=== PATIENT | female | born 1975 | race Caucasian/White ===

== ENCOUNTER → 2018-05-01 | Outpatient (REF) | payer OTHER ==
[~2018-05-01] MED LIST: CLEO300C2 PO
== END ==
LOC: M SFHCLERA 13:24
PROVIDERS: ATTEND Nurse Practitioner Family
DX: J02.9 Acute pharyngitis, unspecified (principal)

== ENCOUNTER → 2019-04-05 | Outpatient (CLI) | payer OTHER ==
[~2019-04-05] MED LIST changes: +PROHANCE 279.3MG/ML 15ML VIAL (A9576) As Ordered ONE; +PROHANCE 279.3MG/ML 5ML VIAL (A9576) As Ordered ONE
--- NOTE | 2019-04-05 17:16 | REP ---
MRI pelvis without and with IV contrast: History: Enlarged uterus, fibroids. No comparison pelvic imaging. Consideration for embolization therapy. Technique: Axial, coronal and sagittal imaging planes are utilized. T1 and T2-weighted sequences include spin-echo, fast spin echo, inversion recovery, diffusion, and postcontrast fat sat imaging. The gadolinium enhancement dose is 17 mL of intravenous ProHance. MRI findings: There is a small quantity of fluid in the cul-de-sac. There is a 3.5 cm follicle cyst in the right ovary. Smaller follicles are seen in the left ovary. No ovarian mass or significant cyst is observed. There is no evidence of bladder mass or pelvic adenopathy. Cortical and medullary bone signal intensity are normal. Overall uterine dimensions are 12.9 x 8.3 x 9.0 cm. There is diffuse rather traumatic thickening of the junctional zone with scattered punctate foci of T2 hyperintensity within the myometrium. There is no measurable fibroid and the changes are felt to be consistent with diffuse and rather florid adenomyosis rather than fibroid change. Postcontrast images show diffuse myometrial and junctional zone enhancement; again no identifiable fibroid. Impression: Findings consistent with diffuse adenomyosis of the uterus rather than fibroid change. The uterus is quite enlarged, 13 cm in length. There is a small quantity of cul-de-sac fluid. No other abnormality. Electronically Signed by Greg oRd MD 04/05/2019 05:52 P
== END ==
LOC: M RAD 14:21
PROVIDERS: ATTEND Obstetrics & Gynecology
DX: N85.2 Hypertrophy of uterus (principal)
CPT/HCPCS: 72197; A9576

== ENCOUNTER 2020-03-20 10:59 | Outpatient (CLI) | payer OTHER ==
[~2020-03-20 10:59] MED LIST changes: -PROHANCE 279.3MG/ML 15ML VIAL (A9576) As Ordered ONE; -PROHANCE 279.3MG/ML 5ML VIAL (A9576) As Ordered ONE
[2020-03-20 11:03] VITALS: BP 162/88
[2020-03-20 11:48] VITALS: BP 155/82
[2020-03-20 13:45] VITALS: BP 129/77
== END 2020-03-20 13:45 | disposition home or self-care (01) ==
LOC: M INFU 10:59
DX: N93.9 Abnormal uterine and vaginal bleeding, unspecified (principal); D50.0 Iron deficiency anemia secondary to blood loss (chronic); Z88.1 Allergy status to other antibiotic agents
CPT/HCPCS: 96365; 96366; J1756

== ENCOUNTER 2020-03-27 11:02 | Outpatient (CLI) | payer OTHER ==
[2020-03-27 11:47] VITALS: BP 136/67
[2020-03-27 13:25] VITALS: BP 110/69
== END 2020-03-27 13:25 | disposition home or self-care (01) ==
LOC: M INFU 11:02
DX: D50.9 Iron deficiency anemia, unspecified (principal); N93.9 Abnormal uterine and vaginal bleeding, unspecified
CPT/HCPCS: 96365; 96366; J1756

== ENCOUNTER 2020-04-03 10:25 | Outpatient (CLI) | payer OTHER ==
[~2020-04-03] VITALS: Ht 175.3 cm; Wt 94.5 kg
[2020-04-03 10:32] VITALS: BP 135/69
[2020-04-03 13:30] VITALS: BP 116/72
== END 2020-04-03 13:30 | disposition home or self-care (01) ==
LOC: M INFU 10:25
DX: D50.9 Iron deficiency anemia, unspecified (principal); N93.9 Abnormal uterine and vaginal bleeding, unspecified
CPT/HCPCS: 96365; 96366; J1756

== ENCOUNTER 2020-04-10 11:24 | Outpatient (CLI) | payer OTHER ==
[~2020-04-10] VITALS: Ht 172.7 cm; Wt 94.5 kg
[~2020-04-10 11:24] MED LIST changes: +MULT-40 PO; +ZYRTTAB8 PO
[2020-04-10 11:30] VITALS: BP 118/74
[2020-04-10 12:20] VITALS: BP_SYST 116; BP_SYST 121; BP_DIAS 62; BP_DIAS 74
[2020-04-10 13:20] VITALS: BP 121/62
[2020-04-10 14:45] VITALS: BP 127/64
== END 2020-04-10 14:45 | disposition home or self-care (01) ==
LOC: M INFU 11:24
DX: D50.0 Iron deficiency anemia secondary to blood loss (chronic) (principal); N93.9 Abnormal uterine and vaginal bleeding, unspecified
CPT/HCPCS: 96365; 96366; J1756

== ENCOUNTER 2020-04-17 06:12 | Day surgery (SDC) | payer OTHER ==
[~2020-04-17] VITALS: Ht 175.3 cm; Wt 90.7 kg
[2020-04-17 06:51] LABS: HEMOGLOBIN 10.6 g/dl (12.0-15.5); MEAN CORPUSCULAR HEMOGLOBIN 22.6 pg (27.0-33.0); MEAN CORPUSCULAR HGB CONC 27.2 g/dl (32.0-36.5); MEAN CORPUSCULAR VOLUME 83.3 fl (80.0-96.0); PLATELET COUNT, AUTOMATED 321 10^3/uL (150-450); RED BLOOD COUNT 4.68 10^6/uL (4.00-5.40); WHITE BLOOD COUNT 6.9 10^3/uL (4.0-10.0)
[2020-04-17] MEDS ORDERED: LR 1,000 ML IV ONE (07:00)
[2020-04-17] MEDS ORDERED: BUPIVACAINE HCL 0.5% 30 ML VIAL As Ordered ONE (07:12)
[2020-04-17 07:14] LABS: APPEARANCE, URINE HAZY (CLEAR); BACTERIA, URINE AUTO NEGATIVE (NEGATIVE); BILIRUBIN, URINE AUTO NEGATIVE (NEGATIVE); BLOOD, URINE BLOOD 3+ (NEGATIVE); COLOR, URINE YELLOW (YELLOW); GLUCOSE, URINE (UA) AUTO NEGATIVE (NEGATIVE); KETONE, URINE AUTO NEGATIVE (NEGATIVE); LEUKOCYTE ESTERASE, URINE AUTO NEGATIVE (NEGATIVE); MUCUS, URINE SMALL (NEGATIVE); NITRITE, URINE AUTO NEGATIVE (NEGATIVE); PROTEIN, URINE AUTO 1+ mg/dL (NEGATIVE); RBC, URINE AUTO TNTC /HPF (0-3); SPECIFIC GRAVITY URINE AUTO 1.014 (1.002-1.035); SQUAMOUS EPITHELIAL CELL UR AU 2 /HPF (0-6); UROBILINOGEN, URINE AUTO 0.2 mg/dL (0.0-2.0); WBC, URINE AUTO 3 /HPF (0-3)
[2020-04-17 07:16] LABS: URINE PREG TEST NEGATIVE (NEGATIVE)
[2020-04-17] MEDS ORDERED: fentaNYL 100 MCG/2 ML INJECTION (J3010) As Ordered ONE ×2 (07:24→08:35)
[2020-04-17] MEDS ORDERED: ONDANSETRON 4MG/2ML VIAL As Ordered ONE (07:24)
[2020-04-17] MEDS ORDERED: ACETAMINOPHEN 1000MG 100ML IV BTL (OFIRMEV) (J0131 PER 10MG) As Ordered ONE (07:24)
[2020-04-17] MEDS ORDERED: KETOROLAC 60MG 2ML VIAL As Ordered ONE (07:24)
[2020-04-17] MEDS ORDERED: LIDOCAINE 2% 100MG/5ML SDV (FOR ANES.) As Ordered ONE (07:24)
[2020-04-17] MEDS ORDERED: dexameTHASONE 4 MG/ML 1ML VIAL (J1100 PER 1MG) As Ordered ONE (07:24)
[2020-04-17] MEDS ORDERED: ROCURONIUM BROMIDE 50 MG/5 ML VIAL As Ordered ONE (07:24)
[2020-04-17] MEDS ORDERED: propofoL 200 MG/20 ML VIAL As Ordered ONE (07:24)
[2020-04-17] MEDS ORDERED: SUGAMMADEX SODIUM 500 MG/5 ML VIAL (BRIDION) As Ordered ONE (07:24)
[2020-04-17] MEDS ORDERED: MIDAZOLAM INJ 2MG/2ML VIAL (J2250 PER 1MG) As Ordered ONE (07:25)
[2020-04-17] MEDS ORDERED: METOCLOPRAMIDE INJ 10MG/2ML VIAL (J2765 PER 1) IV PRN (10:00)
[2020-04-17] MEDS ORDERED: ONDANSETRON 4MG/2ML VIAL IV PRN (10:00)
[2020-04-17] MEDS ORDERED: PERCOCET 5MG/325MG TAB PO PRN (10:00)
[2020-04-17] MEDS ORDERED: fentaNYL 100 MCG/2 ML INJECTION (J3010) IV PRN (10:00)
[2020-04-17] MEDS ORDERED: LR 1,000 ML IV SCH (10:00)
[2020-04-17 10:30] VITALS: BP 120/64
--- NOTE | 2020-04-17 19:06 | ROOPDOC ---
[facility] Report Of Operation Report of Operation DATE OF PROCEDURE: 04/17/20 PREPROCEDURE DIAGNOSES: 1.) Abnormal uterine bleeding 2.) Satisfied parity POSTPROCEDURE DIAGNOSES: 1.) Abnormal uterine bleeding 2.) Satisfied parity PROCEDURE: 1.) Laparoscopic bilateral salpingectomy 2.) Dilation and curettage 3.) Novasure endometrial ablation SURGEON: Nurys Aranda DO COIL CLEANER: Amador Brownlee DO ANESTHESIA: General ESTIMATED BLOOD LOSS: Approximately 5 mL. FLUIDS: 400ml LR OUTPUT: 100ml urine COMPLICATIONS: None. FINDINGS: Patient noted to be on menses with small amount of blood in the p osterior culdesac. Mild adhesive disease of bladder to anterior aspect of uterus. Normal-appearing bilateral ovaries. Bilateral fallopian tubes noted to have fatty tissue incorporated bilaterally but otherwise normal-appearing. NOVASURE ABLATION: Uterus sounded to 9cm with uterine cavity length 6cm. Cavity width 2.7cm. Power 89watts. Time of ablation 93 seconds. DESCRIPTION OF PROCEDURE: The risks, benefits, indications and alternatives of the procedure were reviewed with the patient and informed consent was obtained. The pt was taken to the operating room where general anesthesia was obtained without difficulty. The pt was then placed in the low lithotomy position using Alhaji Stirrups. An exam under anesthesia was then performed and significant for a midline, mobile, 8- week sized anteverted uterus with no adnexal masses/fullness appreciated. Pt was then prepped and draped in the sterile fashion. A time out was performed. The bladder was drained with in-and-out catheter. A single tooth tenaculum was used to grasp the anterior lip of the cervix. The uterus was then sounded to 9 cm. An [place] uterine manipulator was then placed inside the cervix. Gloves were exchanged and attention was then turned to the patients abdomen were a 5mm skin incision was made in the inferior aspect of the umbilicus after injection of 5 cc of 0.5% Marcaine. A 5mm trocar and sleeve were then carefully introduced into the peritoneal cavity under direct visualization at a 90-degree angle while tenting up the abdominal wall. Intra-peritoneal placement was confirmed under direct visualization with entry pressure <5 mm Hg. A pneumoperitoneum was obtained with several liters of CO2 gas, maximum pressure of 15 mm Hg. Upon entry into the peritoneal cavity, structures immediately below the incision were inspected and found to be free of injury. A survey of the patients abdomen and pelvis was notable for a normal appearing liver, gallbladder, and stomach. The uterus, fallopian tubes, and ovaries were normal in appearance. The anterior and posterior cul-de-sacs were also inspected and normal. Two additional 5mm trocars, one on the left lateral aspect of the abdominal wall and one on the right lateral aspect of the abdominal wall were placed under direct laparoscopic visualization after injection of 3ml of 0.5% Marcaine plain. Using the ligasure electrocautery the left fallopian tube was dissected from the mesosalpinx from the fimbriated end to the isthmic portion, taking care to avoid any vasculature within the mesosalpinx. The fallopian tube was then amputated at its connection to the uterine cornua and removed from the patient's abdomen through the RLQ port site. Attention was then turned to the patient's right fallopian tube, which was lifted by a blunt grasper and removed in a similiar fashion. The right fallopian tube was amputated and also removed from the RLQ port site with a blunt grasper. All operative sites were noted to be hemostatic. The gas was then turned off and all CO2 was removed from the patients abdomen. All remaining ports were then removed and incisions were noted to be hemostatic. The umbilicus incision was then closed with 4-0 monocryl. All incisions were dressed with dermabond. A uterine sound was gently placed into the uterus, which sounded to 9 cm with cervical length of 6 cm. The cervix was then gently, serially dilated to a size 14 Polish juan/milla dilator. The Novasure device was then opened and the cavity length set to 6cm. The Novasure device was then placed into the uterine cavity and deployed. The usual maneuvers were performed per the manufacturers guidelines and a cavity width of 2.7 cm was obtained. The cavity integrity was assessed. The Novasure device was then activated and the cavity was ablated for 93 seconds at a power of 89 galvan. The Novasure device was then carefully removed from the endometrial cavity. The single tooth tenaculum was removed from the anterior lip of the cervix. The tenaculum sites were noted to be hemostatic. All instruments were then removed from the vagina. A vaginal sweep was performed and confirmed no retained foreign objects remained in the vagina. At the completion of the case the sponge and needle counts were correct x 2. The patient tolerated the procedure well and was taken to the PACU in stable condition. NURYS ARANDA DO Apr 17, 2020 09:28
== END 2020-04-17 10:50 | disposition home or self-care (01) ==
LOC: M SDC 06:12
DX: Z30.2 Encounter for sterilization (principal); N93.9 Abnormal uterine and vaginal bleeding, unspecified; D50.0 Iron deficiency anemia secondary to blood loss (chronic); R06.83 Snoring; Z87.891 Personal history of nicotine dependence; Z88.1 Allergy status to other antibiotic agents
CPT/HCPCS: 36415; 58563; 58661; 81001; 81025; 84703; 85027; 86850; 86900; 86901; 88302; 88305; J0131; J1100; J1885; J2250; J2405; J3010

== ENCOUNTER 2020-05-02 16:20 | Emergency (ER) | payer OTHER ==
[~2020-05-02] VITALS: Ht 175.3 cm; Wt 91.0 kg
--- OUTSIDE RECORDS SUMMARY | 2020-05-02 16:26 | CCD ---
Author Author [facility] Organization [facility] Address Unknown Phone Unavailable Care Team Providers Care Process Checker Name Role Phone LAKSHMI PINA ARLETTE Unavailable Unavailable Re-disclosure Warning The records that you are about to access may contain information from federally-assisted alcohol or drug abuse programs. If such information is present, then the following federally mandated warning applies: This information has been disclosed to you from records protected by federal confidentiality rules (42 CFR part 2). The federal rules prohibit you from making any further disclosure of this information unless further disclosure is expressly permitted by the written consent of the person to whom it pertains or as otherwise permitted by 42 CFR part 2. A general authorization for the release of medical or other information is NOT sufficient for this purpose. The Federal rules restrict any use of the information to criminally investigate or prosecute any alcohol or drug abuse patient.The records that you are about to access may contain highly sensitive health information, the redisclosure of which is protected by Article 27-F of the [facility] [place] Public Health law. If you continue you may have access to information: Regarding HIV / AIDS; Provided by facilities licensed or operated by the [facility] [place] Office of Mental Health; or Provided by the [facility] [place] Office for People With Developmental Disabilities. If such information is present, then the following [facility] [place] mandated warning applies: This information has been disclosed to you from confidential records which are protected by state law. State law prohibits you from making any further disclosure of this information without the specific written consent of the person to whom it pertains, or as otherwise permitted by law. Any unauthorized further disclosure in violation of state law may result in a fine or senior care sentence or both. A general authorization for the release of medical or other information is NOT sufficient authorization for further disc losure. Encounters Encounter Providers Location Date Indications Data Source(s ) Outpatient Referrer: COCOKandaceAmy ARLETTE PINA 04/26/2019 01:59 :00 PM EST [facility] Outpatient Referrer: LAKSHMI PINA 03/15/2019 08:23 :00 AM EST [facility] Outpatient Referrer: LAKSHMI PINA 03/10/2019 11:53 :00 AM EST [facility] Insurance Providers Payer name Policy type / Coverage type Policy ID Covered democrat ID Covered democrat's relationship to diop Policy Diop Plan Information [employer]AST HUMANA [id number] [id number] HUMANA EAST REG O [id number] S [id number] ANSI-Not a Secondary Insurance [id number] PGBA [employer] [facility] O [id number] P [id number] PGBA [facility] [id number] [facility] [id number] N REGIONAL CLAIMS CATE -O/P [id number] 01 [id number] Results ID Date Data Source [id number] 03/15/2019 12:00:00 AM EST [facility] Arlette Pina Weed Cutter-C Patient Name: ADELSO GARCIA [id number] [facility] Date of : 1975[place] [address] Date of Exam: 03/15/2019PH#: Fax: [phone] EXAM: MAMMO SCREENING WITH CADCLINICAL INFORMATION: Screening.Based on the personal and family history information your patient suppliedat the time of imaging, her lifetime risk of breast cancer estimated by theTyrer-Cuzick model is 19.5%. Given that this patient has less than 20% TCrisk score, no further medical management is currently recommended at thistime.Digital screening (2D only) mammography was performed bilaterally in the CCand MLO projections. Today's exam was compared to the prior exam(s).By history, the patient has no complaints of a palpable breast abnormalityor other significant breast complaints.The patient states that a clinical breast exam was not performed.The breasts are unchanged in size and shape. Once again, denseheterogeneous fibroglandular elements are seen bilaterally in a stableappearing pattern but to such a degree that the sensitivity of themammogram in detecting cancer is decreased. There are no mita-soft tissuedensities or spiculated masses. There is no internal architecturaldistortion. There are no suspicious mita-calcific clusters. Skinthickening or nipple retraction is not present. Stable benign appearingcalcifications are seen bilaterally.The Volpara volumetric breast density category is C, the breasts areheterogeneously dense which may obscure small masses.IMPRESSION:BI-RADS Category 2 - Benign Finding(s). Stable mammogram. There is noevidence of malignant alteration of the breasts. Followup examinationrecommended in one year.This mammogram was read with the assistance of [employer], an FDAapproved computer aided detection system for mammography.Negative x-ray reports should not delay surgical consultation if a dominantor clinically suspicious mass is present.Not all breast cancers can be identified by mammography. Therefore, werecommend that you continue to perform regular breast self-examination andphysical examination and then promptly contact your physician of anyconcerns or changes.Adenosis and dense breasts may obscure an underlying neoplasm.MARINA Ibrahim/Yuliet you for referring ADELSO GARCIA to our office. Electronically Signed - EWA RODRIGUES DO 03/15/19 12:34 Name Value Range Interpretation Code Description Data Cyn rce(s) Supporting Document(s) Procedure
--- OUTSIDE RECORDS SUMMARY | 2020-05-02 17:11 | CCD ---
Author Author [facility] Organization [facility] Address Unknown Phone Unavailable Care Team Providers Care Physical Education Teacher Name Role Phone LAKSHMI PINA ARLETTE Unavailable [...] is protected by Article 27-F of the [facility] Public Health law. If you continue you may have access to information: Regarding HIV / AIDS; Provided by facilities licensed or operated by the [facility] Office of Mental Health; or Provided by the [facility] Office for People With Developmental Disabilities. If such information is present, then the following [facility] mandated warning applies: This information has been [...] law may result in a fine or [place] health care [place] sentence or both. A general authorization for [...] type / Coverage type Policy ID Covered constitution party ID Covered constitution party's relationship to diop Policy Diop Plan Information EAST HUMANA [id number] HU2 [id number] HUMANA EAST REG O [id number] S [id number] ANSI-Not a Secondary Insurance [id number] PGBA [place] O [id number] P [id number] PGBA [facility] [id number] [facility] [id number] N REGIONAL CLAIMS CATE -O/P [id number] 01 [id number] Results ID Date Data Source [id number] 03/15/2019 12:00:00 AM EST [facility] Arlette Pina Forest Economics Professor-C Patient Name: ADELSO GARCIA [id number] [facility] Date of : 1975[place] [address] Date of Exam: 03/15/2019PH#: Fax: [phone] EXAM: [...] was read with the assistance of [employer], an FDAapproved computer aided detection system for [...]
[2020-05-02] MEDS ORDERED: NS 1,000 ML IV ONE (18:30)
[2020-05-02] MEDS ORDERED: KETOROLAC 30 MG/ML 1ML VIAL IV ONE (18:30)
[2020-05-02 19:35] LABS: BLOOD UREA NITROGEN 12 MG/DL (7-18); CALCIUM LEVEL 8.8 MG/DL (8.5-10.1); CARBON DIOXIDE LEVEL 26 MEQ/L (21-32); CHLORIDE LEVEL 108 MEQ/L (98-107); CREATININE FOR GFR 0.74 MG/DL (0.55-1.30); GLOMERULAR FILTRATION RATE > 60.0 (>58); GLUCOSE, FASTING 84 MG/DL (70-100); POTASSIUM SERUM 4.8 MEQ/L (3.5-5.1); SODIUM LEVEL 139 MEQ/L (136-145)
[2020-05-02 20:02] LABS: INR 1.01; PROTHROMBIN TIME 13.5 SECONDS (12.5-14.3)
--- NOTE | 2020-05-02 20:04 | REPVR ---
PROCEDURE INFORMATION: Exam: US Nonobstetric Pelvis; Complete Exam date and time: 05/02/2020 7:25 PM Age: 44 years old Clinical indication: Pelvic pain and other: Vaginal bleeding; Prior surgery; Surgery date: <1 month; Surgery type: S/P ablation on 04/17; Additional info: 04/17 uterine ablation, heavy bleeding sudden today TECHNIQUE: Imaging protocol: Transabdominal pelvic nonobstetric ultrasound. Complete exam. Real time ultrasound with image documentation. COMPARISON: MRI PELVIS W/O FOLL WITH CON 04/05/2019 2:54 PM FINDINGS: Uterus/cervix: The uterus measures 9.7 cm in length by 4 cm in AP dimension by 7.5 cm in transverse dimension. The uterus is bulbous probably secondary to fibroid changes. The endometrium is thickened at 2.7 cm and irregular in echo pattern. It is difficult to completely evaluate the uterus secondary to the patient's discomfort. The uterus is anteverted. Intraperitoneal space: There is a small amount of free fluid in the pelvis. Other findings: The ovaries could not be evaluated during this examination. IMPRESSION: 1. Fibroid changes of the uterus. 2. Thickened endometrium at 2.7 cm and there may be blood and blood products within. Recommend MRI scan for better evaluation of the endometrium as discussed above. Electronically signed by: Fidel Beyer On 05/02/2020 20:04:23 PM
[2020-05-02 20:26] LABS: BASO % 0.5 % (0.0-1.0); EOS % 0.2 % (0.0-3.0); HEMATOCRIT 41.1 % (36.0-47.0); HEMOGLOBIN 11.6 g/dl (12.0-15.5); LYMPH # 0.3 10^3/uL (1.5-5.0); LYMPH % 5.1 % (24.0-44.0); MEAN CORPUSCULAR HEMOGLOBIN 24.9 pg (27.0-33.0); MEAN CORPUSCULAR HGB CONC 28.2 g/dl (32.0-36.5); MEAN CORPUSCULAR VOLUME 88.2 fl (80.0-96.0); MONO % 0.5 % (0.0-5.0); NEUTROPHILS # 5.9 10^3/uL (1.5-8.5); NEUTROPHILS % 93.1 % (36.0-66.0); PLATELET COUNT, AUTOMATED 201 10^3/uL (150-450); RED BLOOD COUNT 4.66 10^6/uL (4.00-5.40); WHITE BLOOD COUNT 6.3 10^3/uL (4.0-10.0)
[2020-05-02] MEDS ORDERED: KETOROLAC 60MG 2ML VIAL IM ONE (20:30)
[2020-05-02 21:58] VITALS: BP 107/66
== END 2020-05-02 21:58 | disposition home or self-care (01) ==
LOC: M ED 16:20
DX: N99.820 Postprocedural hemorrhage of a genitourinary system organ or structure following a genitourinary system procedure (principal); N93.9 Abnormal uterine and vaginal bleeding, unspecified; D50.9 Iron deficiency anemia, unspecified; D25.9 Leiomyoma of uterus, unspecified; Z79.899 Other long term (current) drug therapy; Z88.1 Allergy status to other antibiotic agents
CPT/HCPCS: 36415; 76830; 76856; 80048; 81001; 85025; 85610; 85730; 86850; 86900; 86901; 87086; 96372; 99283; J1885

== ENCOUNTER → 2022-05-22 | Outpatient (CLI) | payer OTHER | LOC: M WHC 08:33 | PROVIDERS: ATTEND Student in an Organized Health Care Education/Training Program | DX: Z12.31 Encounter for screening mammogram for malignant neoplasm of breast (principal) ==